=== PATIENT | female | born 1950 | race Caucasian/White ===

== ENCOUNTER 2023-12-18 20:11 | Emergency (ER) | payer MEDICARE, OTHER, SELFPAY ==
[2023-12-18 20:23] VITALS: BP 140/72; PULSE 107; RESP 18; TEMP 37.8; O2SAT 94; BMI 25.6
[2023-12-18] MEDS: ONDANSETRON 4 MG/2 ML INJ IV (20:58)
[2023-12-18] MEDS: SODIUM CHLORIDE 0.9% 1,000 ML 1000 ML IV (20:58)
--- NOTE | 2023-12-18 21:05 | ED.NAVMDI ---
HPI - Nausea/Vomiting/Diarrhea General Chief complaint: Nausea/Vomiting/Diarrhea Stated complaint: covid+ Time Seen by Provider: 12/18/23 20:48 Source: patient Mode of arrival: Ambulatory History of Present Illness HPI Narrative: 73-year-old female presents ambulatory by private vehicle for nausea and vomiting. Patient has had 2 days of upper respiratory symptoms including nasal congestion and sore throat and had a positive home COVID-19 test. She went to a walk-in clinic earlier today and was prescribed Paxlovid. This afternoon she had 2-3 episodes of emesis and decided to bring her in for evaluation. Patient reports mild nausea, denies abdominal pain, dysuria, hematuria, other complaints. also symptomatic at home x 3 days. Related Data Previous Rx's Medication Instructions Recorded ondansetron 4 mg disintegrating 4 mg PO Q8H PRN nausea and 12/18/23 tablet vomiting #30 tabs Allergies Allergy/AdvReac Type Severity Reaction Status Date / Time lidocaine Allergy Verified 12/18/23 20:39 Sulfa (Sulfonamide Allergy Verified 12/18/23 20:39 Antibiotics) Exam Initial Vital Signs Initial Vital Signs: Vital Signs Temperature 100.1 F H 12/18/23 20:23 Pulse Rate 107 H 12/18/23 20:23 Respiratory Rate 18 12/18/23 20:23 Blood Pressure 140/72 12/18/23 20:23 Pulse Oximetry 94 12/18/23 20:23 Oxygen Delivery Method Room Air 12/18/23 20:23 Const: Awake, alert, no acute distress, nontoxic appearing Cardiac: Tachycardia, regular rhythm RESP: unlabored, clear bilaterally, no wheezing GI: Soft, nontender, nondistended, no rebound, no guarding Skin: Warm, Dry, intact, no rashes Neuro: AO x3, CN II-XII grossly intact, moves all extremities Course Orders Ordered: ED Orders 12/18/23 20:45 Complete Blood Count AUTO DIFF Stat Comprehensive Metabolic Panel Stat Lipase Stat 12/18/23 22:01 Chest [XR chest 2V] Stat 12/18/23 22:15 Urine Culture Stat Urine Microscopic Stat Discontinued Medications Sodium Chloride (Normal Saline 0.9%) 1,000 mls @ 1,000 mls/hr IV BOLUS ONE Stop: 12/18/23 21:48 Last Infusion: 12/18/23 22:07 Dose: Infused Documented By: Admin: 12/18/23 20:58 Dose: 1,000 mls/hr Documented By: MALINA Ondansetron HCl (Ondansetron 4 Mg/2 Ml Inj) 4 mg IV NOW PRN PRN Reason: Nausea And Vomiting Last Admin: 12/18/23 20:58 Dose: 4 mg Documented By: MALINA Ondansetron HCl (Ondansetron 4 Mg Odt) 4 mg PO NOW PRN PRN Reason: Nausea And Vomiting Ondansetron HCl (Ondansetron 4 Mg Odt Prepack) 1 bottle MISC DIRECTED ONE Stop: 12/18/23 23:21 Last Admin: 12/18/23 23:36 Dose: 1 bottle Documented By: MALINA Vital Signs Vital signs: Vital Signs - 8 hr 12/18/23 20:23 12/18/23 22:26 12/18/23 22:56 Temperature 100.1 F H Pulse Rate 107 H 93 H 100 H Respiratory Rate 18 14 Blood Pressure 140/72 120/65 Pulse Oximetry 94 93 93 Oxygen Delivery Method Room Air Nasal Cannula Room Air Oxygen Flow Rate 2 12/18/23 23:38 12/18/23 23:52 Temperature Pulse Rate 95 H 94 H Respiratory Rate 18 Blood Pressure Pulse Oximetry 95 94 Oxygen Delivery Method Room Air Room Air Oxygen Flow Rate MDM - Nausea/Vomiting/Diarrhea Differential Diagnosis Differential diagnosis: Likely gastroenteritis, drug-induced nausea and vomiting and dehydration Lab Data 12/18/23 20:45 12/18/23 20:45 Labs: Lab Results 12/18/23 12/18/23 Range/Units 20:45 22:15 WBC 8.5 (4.5-11.0) X10^3/uL RBC 4.33 (4.0-5.2) X10^6/uL Hgb 13.4 (12.0-16.0) g/dL Hct 38.0 (36-46) % MCV 87.8 (80-100) fL MCH 30.9 (26-34) PG MCHC 35.2 (30-36) % RDW 12.9 (11.6-14.8) % Plt Count 211 (150-400) X10^3/uL Neut % (Auto) 76.5 H (50-75) % Lymph % (Auto) 10.5 L (25-40) % [place] % (Auto) 12.4 (3-14) % Eos % (Auto) 0.2 L (2-4) % Baso % (Auto) 0.4 (0-2) % Neut # (Auto) 6500 (4382-2133) /uL Lymph # (Auto) 900 L (0238-3558) /uL [place] # (Auto) 1100 H (0-900) /uL Eos # (Auto) 0 (0-450) /uL Baso # (Auto) 0 (0-100) /uL Sodium 132 L (137-145) mmol/L Potassium 3.3 L (3.4-5.1) mmol/L Chloride 102 (98-107) mmol/L Carbon Dioxide 25 (22-32) mmol/L BUN 7 (7-17) mg/dL Creatinine 0.59 (0.52-1.04) mg/dL Estimated GFR > 60 (>60) mL/min BUN/Creatinine Ratio 11.9 (6-22) Glucose 108 (80-110) mg/dL Calcium 9.0 (8.4-10.2) mg/dL Total Bilirubin 0.9 (0.2-1.3) mg/dL AST 32 (14-36) IU/L ALT 31 (<35) IU/L Alkaline Phosphatase 61 (38-126) U/L Total Protein 7.3 (6.3-8.2) g/dL Albumin 4.4 (3.5-5.0) g/dL Globulin 2.9 (1.7-4.1) g/dL Albumin/Globulin Ratio 1.5 (1.0-2.8) Lipase 113 (23-300) U/L Urine RBC None seen (0-5/HPF) Urine WBC 5-10/hpf H (0-5/HPF) Ur Squamous Epith Cells 1-5 /hpf (0-5/HPF) Urine Bacteria Many (>30) H (None) Ur Culture Indicated? Specimen cultured Vol Urine Centrifuged 10ml (spun) Urine Dip Bedside Urine Glucose Negative Bedside Urine Bilirubin - Negative Bedside Urine Ketone +/- 5 Urine Specific [place] 1.01 Bedside Urine Occult Blood - Negative Bedside Urine pH 6.5 Bedside Urine Protein - Negative Bedside Urine Urobilinogen - Negative Bedside Urine Nitrite + Positive Bedside Urine Leukocytes - Negative Esterase Imaging Data Chest x-ray: My Impression: PROCEDURE: XR CHEST 2V INDICATIONS: covid, hypoxic TECHNIQUE: 2 views of the chest were acquired. COMPARISON: None. FINDINGS: Surgical changes and devices: None. Lungs and pleura: Mild bibasilar streaky opacities.. No pleural effusions or pneumothorax. Mediastinum: Mediastinal contours are normal. Heart size is normal. Bones and chest wall: No suspicious bony abnormalities. Soft tissues appear unremarkable. IMPRESSION: Mild bibasilar streaky opacities which may represent atelectasis, aspiration or pneumonia in appropriate clinical setting. Approved by: Julissa Langston M.D.,Ph.D. on 12/19/2023 at 0:03 MDM Narrative Medical decision making narrative: Nontoxic patient presenting with 1 afternoon of nausea and vomiting with recent diagnosis of COVID-19. Abdomen is soft, no reproducible tenderness to light or deep palpation. Initially tachycardic in triage, however while resting in ED bed vitals normalized. Laboratory work ordered. Nausea medications and IV fluids ordered. Nursing staff reported brief dip and patient's oxygen saturations, patient was checked and she was sleeping on her back with her head bent forwards onto her chest. When sat upright in bed and awakened oxygen returned to normal. It was told to me by nursing staff that wanting admission to care for for treatment of COVID. Laboratory work reviewed. WBC count 8.5, hemoglobin 13.4, platelet count 211, sodium 132, potassium 3.3, creatinine 0.59, normal liver enzymes, lipase 113. Urine positive for 5-10 WBCs and bacteria present. Patient denying any urinary symptoms, lower abdominal pain, flank pain. With no symptoms and no leukocytosis no indication for antibiotics at this time. Chest x-ray ordered after patient had brief drop in saturations shows atelectasis versus aspiration versus pneumonia. Outside of brief drop in saturations patient has had no respiratory symptoms and is now saturating well on room air with no complaints. Favor atelectasis. She has tolerated po without difficulty and has not vomited once since arrival to the emergency department. Reports improvement in symptoms. demanding admission to hospital stating he can not care for his because they are both sick with COVID and he also does not feel well. I explained to patient and that with normal workup, p.o. tolerance there is no indication for admission to the hospital at this time. stated that he also has COVID and back pain and if the patient falls he can not pick her up. It should be noted that patient was ambulatory into the emergency department of her own power and into triage without any difficulty. then stated ?well if I just leave her here what are you going to do, arrest me? It was stated numerous times to that patient's condition stable and not indicating admission. Nausea medications sent to pharmacy of choice. ED return precautions discussed. Discharge Plan Departure Patient Disposition: Home Clinical Impression: Vomiting, COVID-19 Instructions: DI for Vomiting -- Adult Activity Restrictions/Additional Instructions: Take Tylenol as needed for fever. Use the Zofran prescribed for vomiting. Prescriptions: New ondansetron 4 mg tablet,disintegrating 4 mg PO Q8H PRN (Reason: nausea and vomiting) Qty: 30 0RF Stand Alone Forms: Patient Portal/API
[2023-12-18 21:18] LABS: Add Manual Diff / Slide Review NO; Basophils Absolute Auto 0 /uL (0-100); Basophils Percent Auto 0.4 % (0-2); Eosinophils Absolute Auto 0 /uL (0-450); Eosinophils Percent Auto 0.2 % (2-4); Hemoglobin 13.4 g/dL (12.0-16.0); Lymphocytes Absolute Auto 900 /uL (1100-4500); Lymphocytes Percent Auto 10.5 % (25-40); Mean Corpuscular HGB Conc 35.2 % (30-36); Mean Corpuscular Hemoglobin 30.9 PG (26-34); Mean Corpuscular Volume 87.8 fL (80-100); Monocytes Absolute Auto 1100 /uL (0-900); Monocytes Percent Auto 12.4 % (3-14); Neutrophils Absolute Auto 6500 /uL (1500-7000); Neutrophils Percent Auto 76.5 % (50-75); Platelet Count 211 X10^3/uL (150-400); Red Blood Cell Count 4.33 X10^6/uL (4.0-5.2); Red Cell Distribution Width 12.9 % (11.6-14.8); White Blood Cell Count 8.5 X10^3/uL (4.5-11.0)
[2023-12-18 21:31] LABS: Alanine Aminotransferase 31 IU/L (<35); Albumin 4.4 g/dL (3.5-5.0); Albumin Globulin Ratio 1.5 (1.0-2.8); Alkaline Phosphatase 61 U/L (38-126); Aspartate Aminotransferase 32 IU/L (14-36); BUN Creatinine Ratio 11.9 (6-22); Bilirubin Total 0.9 mg/dL (0.2-1.3); Blood Urea Nitrogen 7 mg/dL (7-17); Carbon Dioxide 25 mmol/L (22-32); Chloride 102 mmol/L (98-107); Estimated Glomerular Filt Rate > 60 mL/min (>60); Globulin 2.9 g/dL (1.7-4.1); Glucose 108 mg/dL (80-110); HEMOLYSIS < 15 (0-50); Lipase 113 U/L (23-300); Potassium 3.3 mmol/L (3.4-5.1); Sodium 132 mmol/L (137-145); Total Protein 7.3 g/dL (6.3-8.2)
--- NOTE | 2023-12-18 22:01 | DI.RAD.S_ITS ---
PROCEDURE: XR CHEST 2V INDICATIONS: covid, hypoxic TECHNIQUE: 2 views of the chest were acquired. COMPARISON: None. FINDINGS: Surgical changes and devices: None. Lungs and pleura: Mild bibasilar streaky opacities.. No pleural effusions or pneumothorax. Mediastinum: Mediastinal contours are normal. Heart size is normal. Bones and chest wall: No suspicious bony abnormalities. Soft tissues appear unremarkable. IMPRESSION: Mild bibasilar streaky opacities which may represent atelectasis, aspiration or pneumonia in appropriate clinical setting. Approved by: Julissa Langston M.D.,Ph.D. on 12/19/2023 at 0:03
[2023-12-18 22:26] VITALS: PULSE 93; O2SAT 93
[2023-12-18 22:52] LABS: Urine Volume 10mL (spun)
[2023-12-18 22:53] LABS: Bacteria Urine Many (>30); Culture Indicated Urine Specimen Cultured; RBC Urine None Seen (0-5/HPF); Squamous Epithelial Cell Urine 1-5 /HPF (0-5/HPF); WBC Urine 5-10/HPF (0-5/HPF)
[2023-12-18 22:56] VITALS: BP 120/65; PULSE 100; RESP 14; O2SAT 93
--- NOTE | 2023-12-18 23:28 | PC.NURSE ---
The patient's expressed concern for his in that he is refusing to take her home saying I cant take care of her I am sick with covid and were in our 70s and you can take me to retirement, but I'm not taking her home The patient's has had covid for a few days and stated that he is tired and sick and unable to care for his . He is speaking in full sentences and is not short of breath. He is able to ambulate without having to sit down and has a steady gate. Dr Gilliland told the patient's that the patient is not meeting criteria to be admitted. She ambulated into the hospital and then was placed in a wheel chair once in triage. Her vital signs are within normal limits and the patient is able to tolerate PO fluids. The patient's stated that the patient is too weak and may fall down and he won't be able to help. He was informed that he can call the fire department for lift assist if that happens or he can call 911 and bring her back to the ER for further evaluation. The situation was discussed with Dr Gilliland and the charge nurse. All parties agree with the discharge and the instructions to return if she has new or worsening symptoms. The patient stated that her vital signs are not stable and that the machine isn't trustworthy. He also stated that he doesn't care what my self and Dr Gilliland has to say and that he's her and knows what's best for her. The patient's vital signs at the time of conversation are BP 120/65, o2 sat 93% on RA, RR 16, pulse 98. She did not appear to be in acute distress and was speaking in full sentences.
[2023-12-18] MEDS: ONDANSETRON 4 MG ODT PREPACK 1 BOTTLE MISC (23:36)
[2023-12-18 23:38] VITALS: PULSE 95; RESP 18; O2SAT 95
[2023-12-18 23:52] VITALS: PULSE 94; O2SAT 94
== END 2023-12-18 23:49 | disposition home or self-care (01) ==
PROVIDERS: Emergency Provider Emergency Medicine
DX: U07.1 COVID-19 (principal); R11.2 Nausea with vomiting, unspecified
CPT/HCPCS: 36415; 71046; 80053; 81003; 81015; 83690; 85025; 87077; 87086; 87186; 96361; 96374; 99284; J2405

== ENCOUNTER → 2023-12-24 12:02 | Outpatient (CLI) | payer MEDICARE, OTHER, SELFPAY | PROVIDERS: Visit Provider Physician Assistant Surgical | DX: R30.0 Dysuria (principal) | CPT/HCPCS: 87086 ==

== ENCOUNTER → 2023-12-26 15:03 | Outpatient (CLI) | payer MEDICARE, OTHER, SELFPAY | PROVIDERS: Visit Provider Student in an Organized Health Care Education/Training Program | DX: R30.0 Dysuria (principal) | CPT/HCPCS: 87086 ==

== ENCOUNTER → 2024-03-13 12:18 | Outpatient (CLI) | payer MEDICARE, OTHER, SELFPAY | PROVIDERS: Visit Provider Nurse Practitioner Family | DX: R30.0 Dysuria (principal); N94.89 Other specified conditions associated with female genital organs and menstrual cycle | CPT/HCPCS: 87077; 87086; 87186; 87210 ==